=== PATIENT | male | born 2000 | race Hispanic/Latino ===

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

== ENCOUNTER 2022-10-09 13:29 | Emergency (ER) | payer OTHER, SELFPAY ==
[2022-10-09 14:52] LABS: #Eosinphils 0.1 thou/uL (0.0-0.7); #Monocytes 0.7 thou/uL (0.11-0.59); #Neutrophils 6.2 thou/uL (1.40-6.50); %Basophils 0.3 % (0.0-1.0); %Eosinophils 0.9 % (0.0-10.0); %Monocytes 7.5 % (0.0-4.0); %Neutrophils 67.9 % (31.0-61.0); Mean Corpuscular HGB CONC 33.3 g/dL (32.0-36.0); Mean Corpuscular Hemoglobin 29.6 pg (25.0-35.0); Mean Platelet Volume 9.4 fL (7.4-10.4); Platelet Count 216 10x3/uL (130-400); RBC Distribution Width 12.6 % (11.5-14.5); Red Blood Cell (RBC) Count 5.07 mill/uL (4.00-5.20); White Blood Cell (WBC) Count 9.2 10x3/uL (4.8-10.8)
[2022-10-09 15:22] LABS: ALT (SGPT) 28 U/L (8-55); AST (SGOT) 22 U/L (5-34); Albumin 4.4 g/dL (3.5-5.0); Alkaline Phosphatase 58 U/L (50-130); Anion Gap 11 mmol/L (10-20); BUN (Urea Nitrogen) 15 mg/dL (8.9-20.6); Bilirubin, Total 0.6 mg/dL (0.2-1.2); Calc. Creatinine Clearance 0 mL/min (70-130); Calcium 9.2 mg/dL (7.8-10.44); Carbon Dioxide 26 mmol/L (22-29); Chloride 106 mmol/L (98-107); Estimated GFR 108; Globulin 3.1 g/dL (2.4-3.5); Glucose 88 mg/dL (70-105); Potassium 4.2 mmol/L (3.5-5.1); Protein, Total 7.5 g/dL (6.0-8.3); Sodium 139 mmol/L (136-145)
== END 2022-10-09 18:45 | disposition home or self-care (01) ==
LOC: ERS 13:29
DX: R56.9 Unspecified convulsions (principal); M25.522 Pain in left elbow
CPT/HCPCS: 36415; 70450; 80053; 84146; 85025

== ENCOUNTER 2023-03-01 11:11 | Emergency (ER) | payer SELFPAY ==
[2023-03-01] MEDS ORDERED: LORazepam 2 MG/ML SYR.(CARPUJECT) ONE (11:34)
[2023-03-01 11:58] LABS: #Basophils 0.1 thou/uL (0.0-0.2); #Eosinphils 0.1 thou/uL (0.0-0.7); #Monocytes 0.9 thou/uL (0.11-0.59); #Neutrophils 8.1 thou/uL (1.40-6.50); %Basophils 0.4 % (0.0-1.0); %Eosinophils 0.6 % (0.0-10.0); %Lymphocytes 22.8 % (28.0-48.0); %Monocytes 7.2 % (0.0-4.0); %Neutrophils 67.8 % (31.0-61.0); Hemoglobin 16.7 g/dL (14.0-18.0); Mean Corpuscular HGB CONC 32.7 g/dL (32.0-36.0); Mean Corpuscular Hemoglobin 29.7 pg (25.0-35.0); Mean Corpuscular Volume 90.6 fl (78.0-98.0); Mean Platelet Volume 9.7 fL (7.4-10.4); Platelet Count 278 10x3/uL (130-400); RBC Distribution Width 12.4 % (11.5-14.5); Red Blood Cell (RBC) Count 5.63 mill/uL (4.00-5.20); White Blood Cell (WBC) Count 11.9 10x3/uL (4.8-10.8)
[2023-03-01 12:07] LABS: Bacteria/HPF None Seen HPF (None Seen); Bilirubin Negative (Negative); Blood, Urine 1+ (Negative); CAUTI Indications for Culture Alt mental st,lethar; Clarity Clear (Clear); Glucose, Urine (Dipstick) Normal (Negative); Ketone, Urine 10 mg/dL (Negative); Leukocyte Negative Leu/uL (Negative); Nitrite Negative (Negative); Protein, Urine (Dipstick) 70 mg/dL (Neg-Trace); RBC/HPF 0-3 HPF (0-3); Specific Gravity, Urine 1.021 (1.002-1.036); Squamous Epithelial None Seen HPF (0-3); Urobilinogen Normal mg/dL (Less than 2); WBC/HPF 0-3 HPF (0-3)
[2023-03-01 12:09] LABS: Urine Culture Reflex No No
[2023-03-01 12:10] LABS: Amphetamine Not Detected (NotDetected); Barbiturates Screen Not Detected (NotDetected); Benzodiazepine Screen Not Detected (NotDetected); Cocaine Metabolite Screen Detected (NotDetected); Methadone Not Detected (NotDetected); Methamphetamine Not Detected (NotDetected); Opiate Screen Not Detected (NotDetected); Oxycodone Screen Not Detected (NotDetected); Phencyclidine (PCP) Not Detected (NotDetected); THC/Cannabinoid Screen Not Detected (NotDetected); Tricyclic Screen Not Detected (NotDetected)
[2023-03-01 12:23] LABS: ALT (SGPT) 43 U/L (8-55); AST (SGOT) 33 U/L (5-34); Albumin 5.3 g/dL (3.5-5.0); Alkaline Phosphatase 60 U/L (50-130); Anion Gap 15 mmol/L (10-20); BUN (Urea Nitrogen) 13 mg/dL (8.9-20.6); Bilirubin, Total 0.4 mg/dL (0.2-1.2); CK (CPK) 354 U/L (30-200); Calc. Creatinine Clearance 0 mL/min (70-130); Calcium 10.3 mg/dL (7.8-10.44); Carbon Dioxide 27 mmol/L (22-29); Chloride 106 mmol/L (98-107); Estimated GFR 87; Glucose 123 mg/dL (70-105); Potassium 4.7 mmol/L (3.5-5.1); Protein, Total 8.3 g/dL (6.0-8.3); Sodium 143 mmol/L (136-145)
[2023-03-01] MEDS ORDERED: levETIRAcetam 500 MG/5 ML VIAL ONE (14:12)
== END 2023-03-01 14:44 | disposition home or self-care (01) ==
LOC: ERS 11:11
DX: R56.9 Unspecified convulsions (principal); F12.90 Cannabis use, unspecified, uncomplicated
CPT/HCPCS: 36415; 80053; 80177; 80306; 81001; 82550; 83605; 85025; 96361; 96365; 96375; J1953; J2060

== ENCOUNTER 2023-03-07 09:28 | Emergency (ER) | payer SELFPAY ==
[2023-03-07] MEDS ORDERED: Iopamidol-370 76% 500 ML MDV (1 ML CHARGE) ONE (11:03)
[2023-03-07] MEDS ORDERED: Fluorescein Opthalmic Strip ONE (11:45)
[2023-03-07] MEDS ORDERED: Proparacaine 0.5% Opth 15 ML BOT ONE (11:45)
[2023-03-07 12:35] LABS: #Eosinphils 0.1 thou/uL (0.0-0.7); #Monocytes 0.8 thou/uL (0.11-0.59); #Neutrophils 5.7 thou/uL (1.40-6.50); %Basophils 0.3 % (0.0-1.0); %Eosinophils 0.8 % (0.0-10.0); %Lymphocytes 24.1 % (28.0-48.0); %Monocytes 8.6 % (0.0-4.0); %Neutrophils 65.7 % (31.0-61.0); Hematocrit 51.2 % (42.0-52.0); Hemoglobin 16.7 g/dL (14.0-18.0); Mean Corpuscular HGB CONC 32.6 g/dL (32.0-36.0); Mean Corpuscular Hemoglobin 29.6 pg (25.0-35.0); Mean Corpuscular Volume 90.8 fl (78.0-98.0); Mean Platelet Volume 9.7 fL (7.4-10.4); Platelet Count 267 10x3/uL (130-400); RBC Distribution Width 12.3 % (11.5-14.5); Red Blood Cell (RBC) Count 5.64 mill/uL (4.00-5.20); White Blood Cell (WBC) Count 8.7 10x3/uL (4.8-10.8)
[2023-03-07 12:57] LABS: Anion Gap 14 mmol/L (10-20); BUN (Urea Nitrogen) 14 mg/dL (8.9-20.6); Calc. Creatinine Clearance 0 mL/min (70-130); Carbon Dioxide 26 mmol/L (22-29); Chloride 104 mmol/L (98-107); Potassium 3.8 mmol/L (3.5-5.1); Sodium 140 mmol/L (136-145)
[2023-03-07 12:58] LABS: ALT (SGPT) 25 U/L (8-55); AST (SGOT) 17 U/L (5-34); Albumin 5.4 g/dL (3.5-5.0); Alkaline Phosphatase 60 U/L (50-130); Calcium 10.2 mg/dL (7.8-10.44); Estimated GFR 96; Glucose 85 mg/dL (70-105); Protein, Total 8.4 g/dL (6.0-8.3)
[2023-03-07 13:06] LABS: Bilirubin, Total 0.6 mg/dL (0.2-1.2)
== END 2023-03-07 13:40 | disposition home or self-care (01) ==
LOC: ERS 09:28
DX: S05.01XA Injury of conjunctiva and corneal abrasion without foreign body, right eye, initial encounter (principal); W26.9XXA Contact with unspecified sharp object(s), initial encounter
CPT/HCPCS: 36415; 70450; 70481; 80053; 85025; Q9967

== ENCOUNTER 2023-03-12 22:31 | Emergency (ER) | payer SELFPAY ==
[2023-03-12 23:14] LABS: #Basophils 0.1 thou/uL (0.0-0.2); #Eosinphils 0.1 thou/uL (0.0-0.7); #Monocytes 0.7 thou/uL (0.11-0.59); #Neutrophils 5.6 thou/uL (1.40-6.50); %Basophils 0.6 % (0.0-1.0); %Eosinophils 1.2 % (0.0-10.0); %Lymphocytes 31.4 % (28.0-48.0); %Monocytes 6.9 % (0.0-4.0); %Neutrophils 59.4 % (31.0-61.0); Hematocrit 46.4 % (42.0-52.0); Hemoglobin 15.6 g/dL (14.0-18.0); Mean Corpuscular HGB CONC 33.6 g/dL (32.0-36.0); Mean Corpuscular Hemoglobin 30.4 pg (25.0-35.0); Mean Corpuscular Volume 90.3 fl (78.0-98.0); Mean Platelet Volume 10.1 fL (7.4-10.4); Platelet Count 285 10x3/uL (130-400); RBC Distribution Width 12.2 % (11.5-14.5); Red Blood Cell (RBC) Count 5.14 mill/uL (4.00-5.20); White Blood Cell (WBC) Count 9.4 10x3/uL (4.8-10.8)
[2023-03-13 00:37] LABS: ALT (SGPT) 35 U/L (8-55); AST (SGOT) 26 U/L (5-34); Alkaline Phosphatase 55 U/L (50-130); Anion Gap 23 mmol/L (10-20); BUN (Urea Nitrogen) 12 mg/dL (8.9-20.6); Bilirubin, Total 0.4 mg/dL (0.2-1.2); Calc. Creatinine Clearance 0 mL/min (70-130); Calcium 9.7 mg/dL (7.8-10.44); Carbon Dioxide 15 mmol/L (22-29); Chloride 106 mmol/L (98-107); Estimated GFR 95; Globulin 2.9 g/dL (2.4-3.5); Glucose 101 mg/dL (70-105); Potassium 3.9 mmol/L (3.5-5.1); Protein, Total 7.9 g/dL (6.0-8.3); Sodium 140 mmol/L (136-145)
== END 2023-03-13 01:04 | disposition home or self-care (01) ==
LOC: ERS 22:31
DX: R56.9 Unspecified convulsions (principal); F17.210 Nicotine dependence, cigarettes, uncomplicated
CPT/HCPCS: 36415; 70450; 80053; 80177; 85025; 93005

== ENCOUNTER 2023-11-09 13:14 | Emergency (ER) | payer SELFPAY ==
[2023-11-09 14:07] LABS: #Basophils 0.03 10x3/uL (0.0-0.2); %Basophils 0.4 % (0.0-1.0); %Lymphocytes 25.3 % (21.0-51.0); %Monocytes 8.9 % (0.0-10.0); %Neutrophils 63.8 % (42.0-75.0); Hematocrit 44.5 % (42.0-52.0); Hemoglobin 14.6 g/dL (14.0-18.0); Mean Corpuscular HGB CONC 32.8 g/dL (32.0-36.0); Mean Corpuscular Hemoglobin 29.7 pg (27.0-31.0); Mean Corpuscular Volume 90.4 fL (78.0-98.0); Mean Platelet Volume 9.5 fL (7.4-10.4); Platelet Count 221 10x3/uL (130-400); RBC Distribution Width 12.9 % (11.5-14.5); Red Blood Cell (RBC) Count 4.92 mill/uL (4.70-6.10)
[2023-11-09] MEDS ORDERED: levETIRAcetam 500 MG (5 mL) VIAL ONE (14:11)
[2023-11-09 14:27] LABS: ALT (SGPT) 45 U/L (8-55); AST (SGOT) 30 U/L (5-34); Albumin 3.9 g/dL (3.5-5.0); Alkaline Phosphatase 57 U/L (40-110); Anion Gap 13 mmol/L (10-20); BUN (Urea Nitrogen) 14 mg/dL (8.9-20.6); Bilirubin, Total 0.3 mg/dL (0.2-1.2); Calc. Creatinine Clearance 0 mL/min (70-130); Calcium 8.7 mg/dL (7.8-10.44); Carbon Dioxide 21 mmol/L (22-29); Chloride 113 mmol/L (98-107); Estimated GFR 96; Globulin 3.2 g/dL (2.4-3.5); Glucose 80 mg/dL (70-105); Protein, Total 7.1 g/dL (6.0-8.3); Sodium 143 mmol/L (136-145)
== END 2023-11-09 17:02 | disposition home or self-care (01) ==
LOC: ERS 13:14
DX: R56.9 Unspecified convulsions (principal); F17.210 Nicotine dependence, cigarettes, uncomplicated; Z79.899 Other long term (current) drug therapy
CPT/HCPCS: 36415; 36416; 80053; 80177; 85025; 94760; 96365; J1953

== ENCOUNTER 2024-01-26 14:48 | Emergency (ER) | payer SELFPAY ==
[2024-01-26] MEDS ORDERED: levETIRAcetam 500 MG (5 mL) VIAL ONE (15:20)
[2024-01-26 15:27] LABS: #Basophils 0.05 10x3/uL (0.0-0.2); %Basophils 0.4 % (0.0-1.0); %Eosinophils 0.3 % (0.0-10.0); %Lymphocytes 12.7 % (21.0-51.0); %Monocytes 7.9 % (0.0-10.0); %Neutrophils 77.7 % (42.0-75.0); Hematocrit 46.7 % (42.0-52.0); Hemoglobin 15.3 g/dL (14.0-18.0); Mean Corpuscular HGB CONC 32.8 g/dL (32.0-36.0); Mean Corpuscular Hemoglobin 29.9 pg (27.0-31.0); Mean Corpuscular Volume 91.4 fL (78.0-98.0); Mean Platelet Volume 9.6 fL (7.4-10.4); Platelet Count 233 10x3/uL (130-400); RBC Distribution Width 12.7 % (11.5-14.5); Red Blood Cell (RBC) Count 5.11 mill/uL (4.70-6.10)
[2024-01-26 15:34] LABS: ALT (SGPT) 32 U/L (8-55); AST (SGOT) 22 U/L (5-34); Albumin 4.5 g/dL (3.5-5.0); Alkaline Phosphatase 69 U/L (40-110); Anion Gap 22 mmol/L (10-20); BUN (Urea Nitrogen) 7 mg/dL (8.9-20.6); Bilirubin, Total 0.4 mg/dL (0.2-1.2); Calc. Creatinine Clearance 0 mL/min (70-130); Calcium 9.5 mg/dL (7.8-10.44); Carbon Dioxide 14 mmol/L (22-29); Chloride 107 mmol/L (98-107); Estimated GFR 110; Globulin 3.7 g/dL (2.4-3.5); Glucose 99 mg/dL (70-105); Protein, Total 8.2 g/dL (6.0-8.3); Sodium 139 mmol/L (136-145)
== END 2024-01-26 17:11 | disposition home or self-care (01) ==
LOC: ERS 14:48
DX: G40.909 Epilepsy, unspecified, not intractable, without status epilepticus (principal); S01.512A Laceration without foreign body of oral cavity, initial encounter; F17.210 Nicotine dependence, cigarettes, uncomplicated; Z55.6 Problems related to health literacy; Z79.899 Other long term (current) drug therapy; X58.XXXA Exposure to other specified factors, initial encounter
CPT/HCPCS: 36415; 71045; 80053; 85025; 93005; 96374; J1953

== ENCOUNTER 2024-05-31 13:37 | Emergency (ER) | payer SELFPAY ==
[2024-05-31] MEDS ORDERED: levETIRAcetam 500 MG (5 mL) VIAL ONE (13:54)
[2024-05-31 14:02] LABS: #Basophils 0.06 10x3/uL (0.0-0.2); #Eosinophils Less than 0.03 10x3/uL (0.0-0.7); %Basophils 0.4 % (0.0-1.0); %Eosinophils 0.1 % (0.0-10.0); %Lymphocytes 11.9 % (21.0-51.0); %Monocytes 7.5 % (0.0-10.0); %Neutrophils 79.1 % (42.0-75.0); Hematocrit 50.6 % (42.0-52.0); Hemoglobin 16.5 g/dL (14.0-18.0); Mean Corpuscular HGB CONC 32.6 g/dL (32.0-36.0); Mean Corpuscular Hemoglobin 29.6 pg (27.0-31.0); Mean Corpuscular Volume 90.8 fL (78.0-98.0); Mean Platelet Volume 9.5 fL (7.4-10.4); Platelet Count 268 10x3/uL (130-400); RBC Distribution Width 12.5 % (11.5-14.5); Red Blood Cell (RBC) Count 5.57 mill/uL (4.70-6.10)
[2024-05-31 14:23] LABS: ALT (SGPT) 27 U/L (Less than 45); AST (SGOT) 30 U/L (11-34); Albumin 4.6 g/dL (3.1-4.5); Alkaline Phosphatase 66 U/L (40-110); Anion Gap 22 mmol/L (10-20); BUN (Urea Nitrogen) 9 mg/dL (8.9-20.6); Bilirubin, Total 0.5 mg/dL (0.3-1.2); Calc. Creatinine Clearance 0 mL/min (70-130); Calcium 9.2 mg/dL (7.8-10.44); Carbon Dioxide 15 mmol/L (22-29); Chloride 105 mmol/L (98-107); Estimated GFR 85; Globulin 3.6 g/dL (2.4-3.5); Glucose 85 mg/dL (70-105); Protein, Total 8.2 g/dL (6.0-8.3); Sodium 138 mmol/L (136-145)
[2024-05-31 15:04] LABS: Acetaminophen Less than 10 mcg/mL (Less than 10); Alcohol Less than 10.0 mg/dL (Less than 10); Salicylate Less than 8.0 mg/dL (Less than 8.0)
== END 2024-05-31 18:26 | disposition home or self-care (01) ==
LOC: ERS 13:37
DX: G40.909 Epilepsy, unspecified, not intractable, without status epilepticus (principal); F14.10 Cocaine abuse, uncomplicated; F17.210 Nicotine dependence, cigarettes, uncomplicated; Z91.148 Patient's other noncompliance with medication regimen for other reason
CPT/HCPCS: 36415; 80053; 80307; 85025; 93005; 96365; J1953

== ENCOUNTER 2025-01-23 15:56 | Emergency (ER) | payer OTHER, SELFPAY ==
[2025-01-23] MEDS ORDERED: levETIRAcetam 500 MG (5 mL) VIAL ONE (16:09)
[2025-01-23 16:34] LABS: #Basophils 0.07 10x3/uL (0.0-0.2); #Eosinophils 0.04 10x3/uL (0.0-0.7); #Monocytes 0.71 10x3/uL (0.11-0.59); #Neutrophils 6.65 10x3/uL (1.40-6.50); %Basophils 0.7 % (0.0-1.0); %Eosinophils 0.4 % (0.0-10.0); %Lymphocytes 22.8 % (21.0-51.0); %Monocytes 7.2 % (0.0-10.0); %Neutrophils 67.9 % (42.0-75.0); Hematocrit 46.1 % (42.0-52.0); Hemoglobin 15.0 g/dL (14.0-18.0); Mean Corpuscular Hemoglobin 29.4 pg (27.0-31.0); Mean Corpuscular Volume 90.4 fL (78.0-98.0); Platelet Count 264 10x3/uL (130-400); Red Blood Cell (RBC) Count 5.10 mill/uL (4.70-6.10); White Blood Cell (WBC) Count 9.80 10x3/uL (4.8-10.8)
[2025-01-23 16:53] LABS: ALT (SGPT) 44 U/L (Less than 45); AST (SGOT) 35 U/L (11-34); Acetaminophen Less than 10 mcg/mL (Less than 10); Albumin 4.4 g/dL (3.1-4.5); Alkaline Phosphatase 57 U/L (40-110); Anion Gap 21 mmol/L (10-20); BUN (Urea Nitrogen) 7 mg/dL (8.9-20.6); Bilirubin, Total 0.3 mg/dL (0.3-1.2); Calc. Creatinine Clearance 0 mL/min (70-130); Calcium 9.7 mg/dL (7.8-10.44); Carbon Dioxide 15 mmol/L (22-29); Chloride 108 mmol/L (98-107); Globulin 3.5 g/dL (2.4-3.5); Glucose 109 mg/dL (70-105); Potassium 4.0 mmol/L (3.5-5.1); Salicylate Less than 8.0 mg/dL (Less than 8.0); Sodium 140 mmol/L (136-145)
== END 2025-01-23 19:04 | disposition home or self-care (01) ==
LOC: ERS 15:56
DX: R56.9 Unspecified convulsions (principal); Z55.6 Problems related to health literacy; Z79.891 Long term (current) use of opiate analgesic
CPT/HCPCS: 70450; 71045; 80053; 80307; 83605; 84146; 85025; 93005; 96365; J1953

== ENCOUNTER 2025-02-14 17:53 | Observation (INO) | payer SELFPAY ==
[2025-02-14 18:21] LABS: Hematocrit 51.5 % (42.0-52.0); Hemoglobin 16.6 g/dL (14.0-18.0); Mean Corpuscular Hemoglobin 30.1 pg (27.0-31.0); Mean Corpuscular Volume 93.5 fL (78.0-98.0); Platelet Count 344 10x3/uL (130-400); Red Blood Cell (RBC) Count 5.51 mill/uL (4.70-6.10); White Blood Cell (WBC) Count 20.11 10x3/uL (4.8-10.8)
[2025-02-14] MEDS ORDERED: levETIRAcetam 500 MG (5 mL) VIAL ONE (18:23)
[2025-02-14 18:30] LABS: Acetaminophen Less than 10 mcg/mL (Less than 10); Salicylate Less than 8.0 mg/dL (Less than 8.0)
[2025-02-14 18:31] LABS: ALT (SGPT) 48 U/L (Less than 45); AST (SGOT) 48 U/L (11-34); Albumin 5.1 g/dL (3.1-4.5); Alkaline Phosphatase 76 U/L (40-110); Anion Gap 31 mmol/L (10-20); BUN (Urea Nitrogen) 8 mg/dL (8.9-20.6); Bilirubin, Total 0.4 mg/dL (0.3-1.2); Calc. Creatinine Clearance 0 mL/min (70-130); Calcium 9.8 mg/dL (7.8-10.44); Carbon Dioxide 9 mmol/L (22-29); Chloride 102 mmol/L (98-107); Globulin 4.3 g/dL (2.4-3.5); Glucose 115 mg/dL (70-105); Potassium 4.4 mmol/L (3.5-5.1); Sodium 138 mmol/L (136-145)
[2025-02-14 19:18] LABS: Burr Cells SLIGHT = 2-5 cells HPF (0-1); Macrocytosis SLIGHT = 6-15 cells HPF (0-5); Nucleated RBC (Manual Ct) 1 % (0); Platelet Adequacy Comment Platelets Normal; Smudge Cells 5.0 %
[2025-02-14 22:02] LABS: Anion Gap 13 mmol/L (10-20); BUN (Urea Nitrogen) 8 mg/dL (8.9-20.6); Calc. Creatinine Clearance 0 mL/min (70-130); Calcium 8.5 mg/dL (7.8-10.44); Carbon Dioxide 23 mmol/L (22-29); Chloride 109 mmol/L (98-107); Glucose 103 mg/dL (70-105); Potassium 4.1 mmol/L (3.5-5.1); Sodium 141 mmol/L (136-145)
[2025-02-14] MEDS ORDERED: Ondansetron PF 4 MG/2 ML Vial IVP PRN (22:50)
[2025-02-15 01:08] VITALS: BMI 40.8
[2025-02-15 02:46] LABS: Actual Bicarbonate (HCO3v) 24.9 mEq/L (22-28); Base Excess -2.7 mEq/L (-2.0 to +3.0); Calcium, Ionized (venous) 1.16 mmol/L (1.16-1.32); Chloride (VBG) 103 mmol/L (98-106); Hematocrit-VBG 44 % (42.0-52.0); Hemoglobin (Hb) 15.1 g/dL (13.2-17.3); Potassium (VBG) 3.85 mmol/L (3.70-5.30); Sodium 139 mmol/L (133-146)
[2025-02-15 05:20] LABS: #Basophils 0.03 10x3/uL (0.0-0.2); #Eosinophils 0.16 10x3/uL (0.0-0.7); #Monocytes 1.11 10x3/uL (0.11-0.59); #Neutrophils 6.71 10x3/uL (1.40-6.50); %Basophils 0.3 % (0.0-1.0); %Eosinophils 1.6 % (0.0-10.0); %Lymphocytes 20.7 % (21.0-51.0); %Monocytes 10.9 % (0.0-10.0); %Neutrophils 66.2 % (42.0-75.0); Hematocrit 43.2 % (42.0-52.0); Hemoglobin 14.3 g/dL (14.0-18.0); Mean Corpuscular Hemoglobin 29.9 pg (27.0-31.0); Mean Corpuscular Volume 90.2 fL (78.0-98.0); Platelet Count 213 10x3/uL (130-400); Red Blood Cell (RBC) Count 4.79 mill/uL (4.70-6.10); White Blood Cell (WBC) Count 10.14 10x3/uL (4.8-10.8)
[2025-02-15 05:51] LABS: ALT (SGPT) 33 U/L (Less than 45); AST (SGOT) 28 U/L (11-34); Albumin 3.7 g/dL (3.1-4.5); Alkaline Phosphatase 50 U/L (40-110); Anion Gap 10 mmol/L (10-20); BUN (Urea Nitrogen) 8 mg/dL (8.9-20.6); Bilirubin, Total 0.8 mg/dL (0.3-1.2); Calc. Creatinine Clearance 203 mL/min (70-130); Calcium 8.6 mg/dL (7.8-10.44); Carbon Dioxide 24 mmol/L (22-29); Chloride 109 mmol/L (98-107); Globulin 3.1 g/dL (2.4-3.5); Glucose 88 mg/dL (70-105); Potassium 4.0 mmol/L (3.5-5.1); Sodium 139 mmol/L (136-145)
[2025-02-15] MEDS: levETIRAcetam 500 MG TAB PO SCH (08:23)
[2025-02-15] MEDS: Acetaminophen 325 MG TAB PO PRN (08:30)
[2025-02-15 09:32] LABS: Cocaine Metabolite Screen PRELIM POSITIVE (Negative); THC/Cannabinoid Screen Negative (Negative); Tricyclic Screen Negative (Negative)
[2025-02-15 12:37] VITALS: BP 121/72; TEMP 97.2
[2025-02-15] MEDS ORDERED: levETIRAcetam 500 MG TAB PO SCH (15:30)
[2025-02-16] MEDS ORDERED: FLU (Fluarix Triv) 25-26 (6MOS UP)/PF 45 MCG/0.5 ML Syringe IM ONE (09:00)
== END 2025-02-15 17:17 | disposition home or self-care (01) ==
LOC: ERS 17:53 → OBS 22:50
PROVIDERS: ADMIT Internal Medicine; ATTEND Student in an Organized Health Care Education/Training Program
PROC: 4A00X4Z Measurement of Central Nervous Electrical Activity, External Approach (ICD-10-PCS; principal; 2025-02-14)
DX: G40.909 Epilepsy, unspecified, not intractable, without status epilepticus (principal); E87.20 Acidosis, unspecified; D72.829 Elevated white blood cell count, unspecified; R21 Rash and other nonspecific skin eruption; F17.200 Nicotine dependence, unspecified, uncomplicated; Z79.899 Other long term (current) drug therapy
CPT/HCPCS: 36415; 36416; 70450; 80053; 80177; 80306; 80307; 82550; 82805; 83605; 84146; 85025; 93005; 95819; 96365; G0378; J1953; J7030

== ENCOUNTER 2025-04-18 16:38 | Inpatient (IN) | payer SELFPAY ==
[2025-04-18 18:02] LABS: #Basophils 0.04 10x3/uL (0.0-0.2); #Eosinophils 0.07 10x3/uL (0.0-0.7); #Monocytes 1.72 10x3/uL (0.11-0.59); #Neutrophils 7.82 10x3/uL (1.40-6.50); %Basophils 0.4 % (0.0-1.0); %Eosinophils 0.6 % (0.0-10.0); %Lymphocytes 14.4 % (21.0-51.0); %Monocytes 15.2 % (0.0-10.0); %Neutrophils 69.1 % (42.0-75.0); Hematocrit 43.0 % (42.0-52.0); Hemoglobin 14.8 g/dL (14.0-18.0); Mean Corpuscular Hemoglobin 29.8 pg (27.0-31.0); Mean Corpuscular Volume 86.5 fL (78.0-98.0); Platelet Count 236 10x3/uL (130-400); Red Blood Cell (RBC) Count 4.97 mill/uL (4.70-6.10); White Blood Cell (WBC) Count 11.31 10x3/uL (4.8-10.8)
[2025-04-18 18:09] LABS: Bacteria/HPF None Seen HPF (None Seen); CAUTI Indications for Culture Acute Hematuria; Glucose, Urine (Dipstick) Normal (Negative); Leukocyte Negative Leu/uL (Negative); Protein, Urine (Dipstick) 20 mg/dL (Neg-Trace); RBC/HPF 0-3 HPF (0-3); Specific Gravity, Urine 1.010 (1.002-1.036); WBC/HPF 0-3 HPF (0-3)
[2025-04-18 18:10] LABS: Urine Culture Reflex No No
[2025-04-18 18:17] LABS: ALT (SGPT) 37 U/L (Less than 45); AST (SGOT) 40 U/L (11-34); Albumin 4.7 g/dL (3.1-4.5); Alkaline Phosphatase 68 U/L (40-110); Anion Gap 20 mmol/L (10-20); BUN (Urea Nitrogen) 23 mg/dL (8.9-20.6); Bilirubin, Total 0.6 mg/dL (0.3-1.2); CK (CPK) 1006 U/L (30-200); Calc. Creatinine Clearance 0 mL/min (70-130); Calcium 9.0 mg/dL (7.8-10.44); Carbon Dioxide 20 mmol/L (22-29); Chloride 103 mmol/L (98-107); Globulin 3.3 g/dL (2.4-3.5); Glucose 91 mg/dL (70-105); Potassium 4.0 mmol/L (3.5-5.1); Sodium 139 mmol/L (136-145)
[2025-04-18] MEDS ORDERED: Ondansetron PF 4 MG/2 ML Vial ONE (19:23)
[2025-04-18] MEDS ORDERED: Guaifenesin DM 100-10/5 ML UDCUP PO PRN (19:55)
[2025-04-18] MEDS ORDERED: Senokot S 8.6-50 MG TAB PO PRN (19:55)
[2025-04-18] MEDS ORDERED: Calcium Carbonate 500 MG ChewTAB PO PRN (19:55)
[2025-04-18] MEDS ORDERED: Acetaminophen 325 MG TAB PO PRN (19:55)
[2025-04-18] MEDS ORDERED: Acetaminophen/Codeine 30-300mg Tablet PO PRN (19:55)
[2025-04-18] MEDS ORDERED: Electrolyte Replacement Protocol 1 EACH FS SCH (20:00)
[2025-04-18 22:19] VITALS: BMI 41.9
[2025-04-19 05:29] LABS: #Basophils 0.04 10x3/uL (0.0-0.2); #Eosinophils Less than 0.03 10x3/uL (0.0-0.7); #Monocytes 1.33 10x3/uL (0.11-0.59); #Neutrophils 6.32 10x3/uL (1.40-6.50); %Basophils 0.4 % (0.0-1.0); %Eosinophils 0.2 % (0.0-10.0); %Lymphocytes 16.7 % (21.0-51.0); %Monocytes 14.3 % (0.0-10.0); %Neutrophils 68.0 % (42.0-75.0); Hematocrit 38.9 % (42.0-52.0); Hemoglobin 12.6 g/dL (14.0-18.0); Mean Corpuscular Hemoglobin 29.2 pg (27.0-31.0); Mean Corpuscular Volume 90.3 fL (78.0-98.0); Platelet Count 186 10x3/uL (130-400); Red Blood Cell (RBC) Count 4.31 mill/uL (4.70-6.10); White Blood Cell (WBC) Count 9.30 10x3/uL (4.8-10.8)
[2025-04-19 05:56] LABS: ALT (SGPT) 28 U/L (Less than 45); AST (SGOT) 35 U/L (11-34); Albumin 3.6 g/dL (3.1-4.5); Alkaline Phosphatase 57 U/L (40-110); Anion Gap 10 mmol/L (10-20); BUN (Urea Nitrogen) 23 mg/dL (8.9-20.6); Bilirubin, Total 0.5 mg/dL (0.3-1.2); Calc. Creatinine Clearance 86 mL/min (70-130); Calcium 8.2 mg/dL (7.8-10.44); Carbon Dioxide 21 mmol/L (22-29); Chloride 110 mmol/L (98-107); Globulin 2.7 g/dL (2.4-3.5); Glucose 103 mg/dL (70-105); Potassium 3.8 mmol/L (3.5-5.1); Sodium 137 mmol/L (136-145)
[2025-04-19] MEDS ORDERED: Potassium Chloride 20 MEQ in Premix 1 BAG IVPB PRN (06:00)
[2025-04-19] MEDS ORDERED: PHOS-NAK 1 PKT PACK PO PRN (06:00)
[2025-04-19] MEDS ORDERED: Magnesium Sulfate In Water 4 GM in Premix 1 BAG IVPB PRN (06:00)
[2025-04-19] MEDS: Enoxaparin 40 MG (0.4 mL) SYRINGE SC SCH (08:55)
[2025-04-19] MEDS ORDERED: Acetaminophen 500 MG TAB PO PRN (09:38)
[2025-04-19] MEDS ORDERED: oxyCODONE 5 MG TAB PO PRN (17:01)
[2025-04-19] MEDS: Acetaminophen 500 MG TAB PO SCH (18:13)
[2025-04-20 05:59] LABS: Anion Gap 10 mmol/L (10-20); BUN (Urea Nitrogen) 16 mg/dL (8.9-20.6); Calc. Creatinine Clearance 128 mL/min (70-130); Calcium 8.6 mg/dL (7.8-10.44); Carbon Dioxide 26 mmol/L (22-29); Chloride 111 mmol/L (98-107); Glucose 95 mg/dL (70-105); Magnesium 1.9 mg/dL (1.6-2.6); Potassium 3.5 mmol/L (3.5-5.1); Sodium 143 mmol/L (136-145)
[2025-04-21 05:24] LABS: Anion Gap 13 mmol/L (10-20); BUN (Urea Nitrogen) 11 mg/dL (8.9-20.6); Calc. Creatinine Clearance 188 mL/min (70-130); Calcium 8.6 mg/dL (7.8-10.44); Carbon Dioxide 24 mmol/L (22-29); Chloride 110 mmol/L (98-107); Glucose 90 mg/dL (70-105); Potassium 3.6 mmol/L (3.5-5.1); Sodium 143 mmol/L (136-145)
[2025-04-21 11:01] VITALS: BP 131/83; TEMP 97.2
== END 2025-04-21 12:59 | disposition home or self-care (01) | DRG 558 ==
LOC: ERS 16:38 → SURG A 19:55
PROVIDERS: ADMIT Internal Medicine; ATTEND Hospitalist
DX: M62.82 Rhabdomyolysis (principal); N17.9 Acute kidney failure, unspecified; R56.9 Unspecified convulsions; F17.210 Nicotine dependence, cigarettes, uncomplicated; D72.829 Elevated white blood cell count, unspecified; Z79.899 Other long term (current) drug therapy
CPT/HCPCS: 29125; 36415; 80048; 80053; 81001; 82550; 83735; 84100; 85025; 96361; 96374; 96375; J1650; J2270; J2405; J7030